=== PATIENT | female | born 1940 | race Caucasian/White ===

== ENCOUNTER → 2021-01-27 | Day surgery (SDC) | payer OTHER ==
--- NOTE | 2021-01-27 13:14 | RAD REPORT ---
EXAM DESCRIPTION: US - Follow Up [facility] - 01/27/2021 10:29 am CLINICAL HISTORY: ICD N64.9/R92.8. COMPARISON: Ultrasound January 15, 2021. FINDINGS: The patient was off of Plavix for two days. Ultrasound demonstrates a 3 mm lesion within the upper-outer quadrant of the right breast which is ne ar a prominent vessel. The risks, benefits and alternatives to the procedure were explained to the patient. Specifically the patient was told of an increased risk of bleeding secondary to Plavix and increased vascularity surr ounding the lesion. The patient was very apprehensive about this. Alternatives to the biopsy were dis cussed with the patient. It was then decided that the patient would have an MRI for further evaluatio n. If the MRI is strongly suggestive of neoplasm then the patient said she would undergo a biopsy. The patient was instructed to restart her Plavix. IMPRESSION: 1. The patient decided to defer the biopsy and have an MRI instead. My recommendation is that a MRI be scheduled. 2. BI-RADS category 0, incomplete. BI-RAD: 0 ResultCode: I
== END ==
LOC: DS 09:36
PROVIDERS: ATTEND Family Medicine
DX: R92.8 Other abnormal and inconclusive findings on diagnostic imaging of breast (principal); N64.9 Disorder of breast, unspecified; Z53.29 Procedure and treatment not carried out because of patient's decision for other reasons
CPT/HCPCS: 76642